=== PATIENT | female | born 1945 | race African-American/Black ===

== ENCOUNTER → 2016-11-22 | Outpatient (CLI) | payer OTHER ==
[2016-06-09 11:18] VITALS: BP 160/85
== END | disposition home or self-care (01) | DRG 884 ==
LOC: RT 13:42
PROVIDERS: ATTEND Psychiatry & Neurology Neurology
DX: R41.89 Other symptoms and signs involving cognitive functions and awareness (principal); R41.82 Altered mental status, unspecified
CPT/HCPCS: 95819

== ENCOUNTER → 2016-12-07 | Outpatient (CLI) | payer OTHER ==
[2016-06-09 11:18] VITALS: BP 160/85
[2016-12-07 16:27] LABS: BASOPHILS # (AUTO) 0.1 X10^3/uL (0.0-0.1); BASOPHILS % (AUTO) 0.7 % (0.2-1.0); EOSINOPHILS # (AUTO) 0.3 x10^3/uL (0.0-0.2); EOSINOPHILS % (AUTO) 4.4 % (0.9-2.9); HEMATOCRIT 35.3 % (36.0-47.0); HEMOGLOBIN 11.1 g/dL (12.0-16.0); LYMPHOCYTES # (AUTO) 1.3 X10^3/uL (1.3-2.9); LYMPHOCYTES % (AUTO) 16.9 % (21.0-51.0); MEAN CORPUSCULAR HEMOGLOBIN 24.2 pg (27.0-34.0); MEAN CORPUSCULAR HGB CONC 31.3 g/dL (33.0-35.0); MEAN CORPUSCULAR VOLUME 77.2 fL (80.0-100.0); MEAN PLATELET VOLUME 9.2 fL (7.4-11.0); MONOCYTES # (AUTO) 0.9 x10^3/uL (0.3-0.8); NEUTROPHILS # (AUTO) 5.1 x10^3/uL (2.2-4.8); PLATELET COUNT 313 X10^3/uL (150.0-450.0); RED BLOOD COUNT 4.58 X10^6/uL (3.5-5.4); RED CELL DISTRIBUTION WIDTH 19.6 % (11.6-16.5); RETICULOCYTE % 1.46 % (0.8-2.2); WHITE BLOOD COUNT 7.7 X10^3/uL (3.6-10.0)
[2016-12-07 16:44] LABS: FREE T4 (FREE THYROXINE) 0.84 ng/dL (0.76-1.46); PLATELET MORPHOLOGY COMMENT NORMAL (NORMAL); T4 (THYROXINE) 9.1 ug/dL (4.7-13.3); TSH (3RD GENERATION) 1.707 uIU/mL (0.358-3.74)
[2016-12-12 06:53] LABS: METHYLMALONIC ACID 0.26 umol/L (0.00-0.40)
== END ==
LOC: LAB 15:40
PROVIDERS: ATTEND Psychiatry & Neurology Neurology
DX: R41.89 Other symptoms and signs involving cognitive functions and awareness (principal); R41.82 Altered mental status, unspecified; Z86.2 Personal history of diseases of the blood and blood-forming organs and certain disorders involving the immune mechanism
CPT/HCPCS: 36415; 82607; 82615; 82746; 83918; 84436; 84439; 84443; 85025; 85045; 86256; 86340

== ENCOUNTER → 2017-01-22 | Outpatient (CLI) | payer OTHER ==
[2016-06-09 11:18] VITALS: BP 160/85
--- NOTE | 2017-01-22 18:55 | MRI ---
STUDY: MRI OF THE BRAIN WITHOUT GADOLINIUM HISTORY: Cognitive decline. Headaches, dizziness, blurred vision and altered mental status. Technique: Multiplanar multi-sequence MRI of the brain was obtained utilizing standard departmental protocol. Sagittal and axial T1, axial T2, FLAIR, diffusion (DWI/ADC) images through the brain were performed. Comparison: Head CT from September 15, 2014. Findings: The sulci, cisterns and ventricles are prominent consistent with diffuse volume loss. There are conf luent and scattered foci of T2 prolongation in the periventricular and subcortical white matter of b oth hemispheres. This is a nonspecific finding which likely represents microangiopathic change in a patient of this age. There is no evidence of acute territorial infarction, hemorrhage, mass, mass effect, or midline shif t. There are no abnormal intra-axial or extra-axial fluid collections. The major intracranial vascu lar flow voids appear intact. The left vertebral artery appears dominant. Note is made of retention cysts in the right maxillary sinus. IMPRESSION: 1. No evidence of acute intracranial abnormality. 2. Nonspecific white matter change and volume loss. Reported By:
== END ==
LOC: RAD 14:44
PROVIDERS: ATTEND Psychiatry & Neurology Neurology
DX: R41.89 Other symptoms and signs involving cognitive functions and awareness (principal)
CPT/HCPCS: 70551

== ENCOUNTER 2017-02-09 19:12 | Emergency (ER) | payer OTHER ==
[2017-02-09 19:17] VITALS: BMI 19.6
[2017-02-09] MEDS ORDERED: NS 1000 ML 1,000 ML IV ONE (19:25)
[2017-02-09] MEDS ORDERED: NS 1000 ML 1,000 ML ONE (19:28)
--- NOTE | 2017-02-09 20:31 | DR.GENAD ---
HPI - PCP Primary Care Physician: MIKO - Complaint/Symptoms Chief Complaint:: NECK PAIN FOR COUPLE WEEKS AND DIZZY, BLOOD PRESSURE 80/50S AT HOME. FAMILY STATES SHE HAS BEEN INCOHERENT. - Source History Provided: Patient, Family Member - Mode of Arrival Mode of Arrival: Wheelchair - Timing Onset of Chief Complaint: 02/09/17 PMH - PMH Past Medical History: Yes Past Medical History: Anemia, Anxiety, Arthritis, Dyslipidemia, Migraines, GERD , Hypertension Past Surgical History: Yes Surgical History: Appendectomy, Cholecystectomy, Hysterectomy, Ortho Surgery - Family History History of Family Medical Conditions: Yes Family Medical History: AR, Heart Failure, Hypertension - Social History Type of Tobacco Use: Cigarettes Alcohol Use: None Do you use any recreational Drugs:: No Lives With: Family Lives Where: Home - infectious screening Have you traveled outside the country in the last 6 months?: No Isolation: Standard ROS - Review of Systems Eyes: No Symptoms Reported ENTM: No Symptoms Reported Respiratoy: No Symptoms Reported Cardiovascular: No Symptoms Reported Gastrointestinal/Abdominal: No Symptoms Reported Genitourinary: No Symptoms Reported Neurological: No Symptoms Reported Musculoskeletal: No Symptoms Reported Integumentary: No Symptoms Reported Hematologic/Lymphatic: No Symptoms Reported Endocrine: No Symptoms Reported Psychiatric: No Symptoms Reported All Other Systems: Reviewed and Negative PE - Vital Signs Vitals: Temperature 97.5 F Pulse Rate [Apical] 61 Pulse Rate 57 Respiratory Rate 16 Blood Pressure [Right Arm] 161/90 Blood Pressure [Right Arm] 144/90 Blood Pressure [Left Arm] 112/55 Blood Pressure 76/43 O2 Sat by Pulse Oximetry 98 - General Limitations: No Limitations General Appearance: Alert, In No Apparent Distress - Head Head Exam: Normal Inspection, Atraumatic - Eyes Eye exam: Normal Appearance, PERRL, EOMI - ENT ENT Exam: Normal Exam External Ear Exam: Normal External Inspection TM/Canal Exam: Bilateral Normal Nose Exam: Normal Nose Exam, Sinus Tenderness Mouth Exam: Normal Inspection Throat Exam: Normal Inspection - Neck Neck Exam: Normal Inspection, Full ROM - Chest Chest Inspection: Normal Inspection - Respiratory Respiratory Exam: Normal Lung Sounds Bilat Respiratory Exam: Bilateral Clear to Auscultation - Cardiovascular Cardiovascular Exam: Regular Rate, Normal Rhythm - Abdominal Exam Abdominal Exam: Normal Inspection, Normal Bowel Sounds Abdominal Tenderness: negative: RUQ, RLQ, LUQ, LLQ, Epigastrium, Suprapubic, Diffuse, Mild, Moderate, Severe, Other - Extremities Extremities Exam: Normal Inspection, Full ROM - Back Back Exam: Normal Inspection, Full ROM - Psychiatric Psychiatric Exam: Normal Affect, Normal Mood - Skin Skin Exam: Warm, Dry, Intact ROR - Labs Reviewed Result Diagrams: 02/09/17 20:12 02/09/17 20:12 Laboratory: WBC 10.1 X10^3/uL (3.6-10.0) H 02/09/17 20:12 RBC 3.96 X10^6/uL (3.5-5.4) 02/09/17 20:12 Hgb 10.2 g/dL (12.0-16.0) L 02/09/17 20:12 Hct 31.7 % (36.0-47.0) L 02/09/17 20:12 MCV 79.9 fL (80.0-100.0) L 02/09/17 20:12 MCH 25.8 pg (27.0-34.0) L 02/09/17 20:12 MCHC 32.2 g/dL (33.0-35.0) L 02/09/17 20:12 RDW 18.8 % (11.6-16.5) H 02/09/17 20:12 Plt Count 362 X10^3/uL (150.0-450.0) 02/09/17 20:12 Plt Count Comment Adequate (ADEQUATE) 02/09/17 20:12 MPV 8.8 fL (7.4-11.0) 02/09/17 20:12 Neut % 72.6 % (42.0-75.0) 02/09/17 20:12 Lymph % 14.0 % (21.0-51.0) L 02/09/17 20:12 [place] % 9.9 % (0.0-13.0) 02/09/17 20:12 Eos % 2.9 % (0.9-2.9) 02/09/17 20:12 Baso % 0.6 % (0.2-1.0) 02/09/17 20:12 Neut # 7.3 x10^3/uL (2.2-4.8) H 02/09/17 20:12 Lymph # 1.4 X10^3/uL (1.3-2.9) 02/09/17 20:12 [place] # 1.0 x10^3/uL (0.3-0.8) H 02/09/17 20:12 Eos # 0.3 x10^3/uL (0.0-0.2) H 02/09/17 20:12 Baso # 0.1 X10^3/uL (0.0-0.1) 02/09/17 20:12 Absolute Nucleated RBC 0.0 /100WBC 02/09/17 20:12 Plt Morphology Comment Normal (NORMAL) 02/09/17 20:12 RBC Morphology Abnormal (NORMAL) A 02/09/17 20:12 Hypochromasia Slight A 02/09/17 20:12 Anisocytosis Slight A 02/09/17 20:12 INR Target Range - 02/09/17 20:12 INR 0.97 (0.8-1.3) 02/09/17 20:12 PTT 30.9 SECONDS (22.9-36.5) 02/09/17 20:12 PTT Comment - 02/09/17 20:12 Sodium 139 mmol/L (136-145) 02/09/17 20:12 Corrected Sodium TNP 02/09/17 20:12 Potassium 3.8 mmol/L (3.5-5.1) 02/09/17 20:12 Chloride 105 mmol/L (98-107) 02/09/17 20:12 Carbon Dioxide 21.4 mmol/L (21-32) 02/09/17 20:12 BUN 27 mg/dL (7-18) H 02/09/17 20:12 Creatinine 1.51 mg/dL (0.55-1.02) H 02/09/17 20:12 Est GFR (MDRD) Af Amer 44 (>60) L 02/09/17 20:12 Est GFR (MDRD) Non-Af 36 (>60) L 02/09/17 20:12 Glucose 87 mg/dL (65-99) 02/09/17 20:12 Calcium 7.5 mg/dL (8.5-10.1) L 02/09/17 20:12 Corrected Calcium 8.1 mg/dL (8.5-10.1) L 02/09/17 20:12 Phosphorus 6.5 mg/dL (2.6-4.7) H 02/09/17 20:12 Magnesium 2.2 mg/dL (1.7-2.9) 02/09/17 20:12 Total Bilirubin 0.20 mg/dL (0.2-1.0) 02/09/17 20:12 AST 15 Units/L (15-37) 02/09/17 20:12 ALT 27 Units/L (12-78) 02/09/17 20:12 Alkaline Phosphatase 150 Units/L (46-116) H 02/09/17 20:12 Creatine Kinase 143 Units/L (26-192) 02/09/17 20:12 CK-MB (CK-2) 2.9 ng/mL (0-4.0) 02/09/17 20:12 CK/CKMB % Calc 2.0 % (<4) 02/09/17 20:12 Troponin I 0.04 ng/mL (0-1.5) 02/09/17 20:12 Total Protein 6.1 g/dL (6.4-8.2) L 02/09/17 20:12 Albumin 3.2 g/dL (3.4-5.0) L 02/09/17 20:12 Globulin 2.9 g/dL (2.5-4.5) 02/09/17 20:12 Albumin/Globulin Ratio 1.1 Ratio (1.1-2.1) 02/09/17 20:12 - XRAY XRAY Interpreted by: Radiologist (C Spine: Mild degererative disc changes noted throughout the cervical spine. 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
--- NOTE | 2017-02-09 20:31 | RAD ---
EXAM: Chest X-ray INDICATION: Bradycardia COMPARISION: Prior exam from April 12, 2016 TECHNIQUE: Single view FINDINGS: The lungs are clear and the lung volumes are within normal limits. No pleural effusion or pneumothor ax. The cardiac silhouette and mediastinum are normal. The regional skeleton is intact. IMPRESSION: No acute abnormality identified Reported By:
[2017-02-09 20:45] LABS: EOSINOPHILS # (AUTO) 0.3 x10^3/uL (0.0-0.2); RED CELL DISTRIBUTION WIDTH 18.8 % (11.6-16.5)
[2017-02-09 20:54] LABS: BASOPHILS # (AUTO) 0.1 X10^3/uL (0.0-0.1); BASOPHILS % (AUTO) 0.6 % (0.2-1.0); EOSINOPHILS % (AUTO) 2.9 % (0.9-2.9); HEMATOCRIT 31.7 % (36.0-47.0); HEMOGLOBIN 10.2 g/dL (12.0-16.0); LYMPHOCYTES # (AUTO) 1.4 X10^3/uL (1.3-2.9); MEAN CORPUSCULAR HEMOGLOBIN 25.8 pg (27.0-34.0); MEAN CORPUSCULAR HGB CONC 32.2 g/dL (33.0-35.0); MEAN CORPUSCULAR VOLUME 79.9 fL (80.0-100.0); MEAN PLATELET VOLUME 8.8 fL (7.4-11.0); MONOCYTES % (AUTO) 9.9 % (0.0-13.0); NEUTROPHILS # (AUTO) 7.3 x10^3/uL (2.2-4.8); NEUTROPHILS % (AUTO) 72.6 % (42.0-75.0); PLATELET COUNT 362 X10^3/uL (150.0-450.0); RED BLOOD COUNT 3.96 X10^6/uL (3.5-5.4); WHITE BLOOD COUNT 10.1 X10^3/uL (3.6-10.0)
[2017-02-09 21:11] LABS: ANISOCYTOSIS SLIGHT; HYPOCHROMASIA SLIGHT; PLATELET MORPHOLOGY COMMENT NORMAL (NORMAL)
[2017-02-09 21:24] LABS: ALANINE AMINOTRANSFERASE 27 Units/L (12-78); ALBUMIN 3.2 g/dL (3.4-5.0); ALKALINE PHOSPHATASE 150 Units/L (46-116); ASPARTATE AMINO TRANSFERASE 15 Units/L (15-37); BLOOD UREA NITROGEN 27 mg/dL (7-18); CALCIUM 7.5 mg/dL (8.5-10.1); CARBON DIOXIDE 21.4 mmol/L (21-32); CHLORIDE 105 mmol/L (98-107); COR CA(FOR HYPOALB) 8.1 mg/dL (8.5-10.1); CREATININE 1.51 mg/dL (0.55-1.02); GLUCOSE 87 mg/dL (65-99); MAGNESIUM 2.2 mg/dL (1.7-2.9); SODIUM 139 mmol/L (136-145); TOTAL PROTEIN 6.1 g/dL (6.4-8.2); eGFR BLACK RACES 44 (>60); eGFR NON BLACK RACES 36 (>60)
[2017-02-09 21:32] LABS: CREATINE KINASE MB 2.9 ng/mL (0-4.0); TROPONIN I 0.04 ng/mL (0-1.5)
[2017-02-09 22:03] VITALS: BP 112/55
--- NOTE | 2017-02-09 22:17 | RAD ---
EXAM: Cervical spine x-ray INDICATION: Neck pain COMPARISION: No priors available for comparison TECHNIQUE: AP, lateral, and odontoid, three views FINDINGS: Mild degenerative disc changes are seen throughout cervical spine. There is normal alignment of the cervical vertebral bodies. The facets are intact. The soft tissues are normal. No acute fracture or subluxation identified. IMPRESSION: Mild degenerative disc changes noted throughout the cervical spine. No acute abnormality identified. Reported By:
== END 2017-02-09 23:23 | disposition home or self-care (01) ==
LOC: ER 19:23
DX: M47.812 Spondylosis without myelopathy or radiculopathy, cervical region (principal); R42 Dizziness and giddiness; R41.82 Altered mental status, unspecified; R94.31 Abnormal electrocardiogram [ECG] [EKG]
CPT/HCPCS: 36415; 71010; 72040; 80053; 82550; 82553; 83735; 84100; 84484; 85025; 85610; 85730; 93005; 93010; 96365; 96367; 99283; A4222

== ENCOUNTER 2017-03-27 09:49 | Observation (INO) | payer OTHER ==
[2017-03-27] MEDS ORDERED: OXYCODONE HCL PO PRN (14:23)
[2017-03-27] MEDS ORDERED: ACETAMINOPHEN PO PRN (14:23)
[2017-03-27] MEDS ORDERED: [UNRECOGNIZED DRUG - OTHER] PO PRN (14:23)
[2017-03-27] MEDS ORDERED: FIORICET #3 W/CODEINE CAP PO PRN (14:30)
[2017-03-27] MEDS ORDERED: PERCOCET TAB 5/325 MG PO PRN (14:30)
--- NOTE | 2017-03-27 14:32 | DR.UPDATE ---
H&P Update History and Physical Update: WAS SEEN IN OUR OFFICE FOR A FOLLOW UP VISIT FOR LEFT ARM PAIN. SHE PRESENTED TODAY WITH CONFUSION. FAMILY REPORTED THAT PATIENT HAD BEEN COMBATIVE WITH THEM FOR THE PAST TWO DAYS. THEY REPORTED THAT THEY ARE UNABLE TO TAKE CARE OF HER AT HOME ANYMORE. THEY WISH FOR PATIENT TO BE PLACED IN A PRISON CARE FACILITY. WE ARE IN AGREEMENT WITH WISHES. WE ADMITTED PATIENT FOR FURTHER TREATMENT AND EVALUATION. WE PLANNED TO CHECK LABS ON ADMISSION. WE PLAN TO ARRANGE FOR PLACEMENT AT A BEHAVIORAL HEALTH UNIT. A H&P WAS COMPLETED ON . PATIENT HAS BEEN SEEN AND EXAMINED WITH NO CHANGES NOTED. Changes noted: NO Yes with the following:
[2017-03-27 14:46] LABS: BASOPHILS % (AUTO) 0.4 % (0.2-1.0); EOSINOPHILS # (AUTO) 0.1 x10^3/uL (0.0-0.2); EOSINOPHILS % (AUTO) 0.9 % (0.9-2.9); HEMATOCRIT 33.1 % (36.0-47.0); HEMOGLOBIN 10.6 g/dL (12.0-16.0); LYMPHOCYTES # (AUTO) 1.1 X10^3/uL (1.3-2.9); LYMPHOCYTES % (AUTO) 14.4 % (21.0-51.0); MEAN CORPUSCULAR HEMOGLOBIN 25.9 pg (27.0-34.0); MEAN CORPUSCULAR HGB CONC 31.9 g/dL (33.0-35.0); MEAN CORPUSCULAR VOLUME 81.4 fL (80.0-100.0); MEAN PLATELET VOLUME 8.7 fL (7.4-11.0); MONOCYTES # (AUTO) 0.7 x10^3/uL (0.3-0.8); MONOCYTES % (AUTO) 8.7 % (0.0-13.0); NEUTROPHILS # (AUTO) 5.8 x10^3/uL (2.2-4.8); NEUTROPHILS % (AUTO) 75.6 % (42.0-75.0); PLATELET COUNT 389 X10^3/uL (150.0-450.0); RED BLOOD COUNT 4.07 X10^6/uL (3.5-5.4); RED CELL DISTRIBUTION WIDTH 17.1 % (11.6-16.5); WHITE BLOOD COUNT 7.7 X10^3/uL (3.6-10.0)
[2017-03-27 15:06] LABS: ALANINE AMINOTRANSFERASE 45 Units/L (12-78); ALBUMIN 3.3 g/dL (3.4-5.0); ALKALINE PHOSPHATASE 133 Units/L (46-116); ASPARTATE AMINO TRANSFERASE 26 Units/L (15-37); BLOOD UREA NITROGEN 51 mg/dL (7-18); CALCIUM 8.7 mg/dL (8.5-10.1); CARBON DIOXIDE 23.2 mmol/L (21-32); CHLORIDE 104 mmol/L (98-107); COR CA(FOR HYPOALB) 9.3 mg/dL (8.5-10.1); CREATININE 1.93 mg/dL (0.55-1.02); GLUCOSE 81 mg/dL (65-99); SODIUM 137 mmol/L (136-145); TOTAL PROTEIN 7.3 g/dL (6.4-8.2); eGFR BLACK RACES 33 (>60); eGFR NON BLACK RACES 27 (>60)
--- NOTE | 2017-03-27 15:16 | CT ---
CT HEAD WITHOUT CONTRAST CLINICAL HISTORY: 71-year-old female with acute confusion. COMPARISON: CT head September 15, 2014, MR brain January 22, 2017. TECHNIQUE: Multiple, non-contrasted axial CT images were obtained from the skull base to the crania l vertex. Coronal and sagittal reformats were performed. FINDINGS: There are no abnormal intra- or extra-axial fluid collections, midline shift, or mass effe ct. [place]-white differentiation is normal. Subtle heterogenous density of a mildly prominent appearing tony that appears chronic. Global cortical involutional changes are present that are within normal limits for the patient's sta morgan age. The ventricular system is mildly enlarged but commensurate with the degree of sulcal promin ence. Periventricular and supraventricular white matter hypodensity is present that is nonspecific i n appearance, but most likely to represent microvascular ischemic changes. Atherosclerotic vascular calcification is present within the carotid siphons and distal vertebral arteries. Mucosal thickening of the right maxillary sinus. The remaining imaged paranasal sinuses, mastoid air cells, and tympanic spaces are clear. Bilateral lens implants. IMPRESSION: 1. No definite evidence of an acute intracranial process. 2. Heterogenous density within a mildly prominent appearing tony, recommend MR brain with and withou t contrast for complete evaluation. 3. Moderate microvascular white matter ischemic changes, with associated volume loss. 4. Mucosal thickening of the right maxillary sinus, correlate for sinusitis. Reported By:
[2017-03-27 15:19] LABS: PLATELET MORPHOLOGY COMMENT NORMAL (NORMAL)
[2017-03-27 15:20] LABS: ANISOCYTOSIS SLIGHT; HYPOCHROMASIA 1+
[2017-03-27] MEDS ORDERED: PATIENT'S HOME MEDICATION (Dicyclomine Hcl [Dicyclomine Hcl] 1 TAB) PO SCH (17:00)
[2017-03-27] MEDS ORDERED: HALDOL INJ IM PRN (18:43)
[2017-03-27] MEDS: BENTYL CAP 10 MG PO SCH (18:48)
[2017-03-27] MEDS ORDERED: XANAX ONE (19:58)
[2017-03-27] MEDS: XANAX PO SCH (20:04)
[2017-03-27] MEDS ORDERED: LABETALOL HCL PO SCH (21:00)
[2017-03-28] MEDS: BENTYL CAP 10 MG PO SCH ×3 (02:08→15:10)
[2017-03-28] MEDS: FLONASE NASAL SPRAY ENOSTRIL SCH ×2 (02:10→09:32)
[2017-03-28] MEDS: LASIX PO SCH ×2 (02:11→09:31)
[2017-03-28] MEDS: NORMODYNE TAB 100 MG PO SCH ×2 (02:12→09:32)
[2017-03-28] MEDS: MEGACE PO SCH ×2 (02:12→09:31)
[2017-03-28] MEDS: PROTONIX TAB 40 MG PO SCH ×2 (02:13→09:31)
[2017-03-28] MEDS: XANAX PO SCH ×2 (02:20→05:18)
[2017-03-28 05:12] LABS: ALANINE AMINOTRANSFERASE 43 Units/L (12-78); ALBUMIN 3.4 g/dL (3.4-5.0); ALKALINE PHOSPHATASE 135 Units/L (46-116); ASPARTATE AMINO TRANSFERASE 29 Units/L (15-37); BLOOD UREA NITROGEN 43 mg/dL (7-18); CALCIUM 8.6 mg/dL (8.5-10.1); CARBON DIOXIDE 24.2 mmol/L (21-32); CHLORIDE 104 mmol/L (98-107); CREATININE 1.33 mg/dL (0.55-1.02); GLUCOSE 106 mg/dL (65-99); SODIUM 139 mmol/L (136-145); TOTAL PROTEIN 7.3 g/dL (6.4-8.2); eGFR BLACK RACES 51 (>60); eGFR NON BLACK RACES 42 (>60)
[2017-03-28 05:16] LABS: BASOPHILS % (AUTO) 0.4 % (0.2-1.0); EOSINOPHILS # (AUTO) 0.1 x10^3/uL (0.0-0.2); EOSINOPHILS % (AUTO) 1.3 % (0.9-2.9); HEMATOCRIT 34.1 % (36.0-47.0); HEMOGLOBIN 10.9 g/dL (12.0-16.0); LYMPHOCYTES # (AUTO) 1.4 X10^3/uL (1.3-2.9); LYMPHOCYTES % (AUTO) 21.7 % (21.0-51.0); MEAN CORPUSCULAR HEMOGLOBIN 26.1 pg (27.0-34.0); MEAN CORPUSCULAR HGB CONC 31.9 g/dL (33.0-35.0); MEAN CORPUSCULAR VOLUME 81.6 fL (80.0-100.0); MEAN PLATELET VOLUME 9.8 fL (7.4-11.0); MONOCYTES # (AUTO) 0.9 x10^3/uL (0.3-0.8); NEUTROPHILS # (AUTO) 4.2 x10^3/uL (2.2-4.8); NEUTROPHILS % (AUTO) 63.6 % (42.0-75.0); PLATELET COUNT 361 X10^3/uL (150.0-450.0); RED BLOOD COUNT 4.17 X10^6/uL (3.5-5.4); RED CELL DISTRIBUTION WIDTH 17.6 % (11.6-16.5); WHITE BLOOD COUNT 6.6 X10^3/uL (3.6-10.0)
[2017-03-28] MEDS ORDERED: ZESTRIL TAB 40 MG PO SCH (09:00)
[2017-03-28] MEDS ORDERED: TOPAMAX PO SCH (09:00)
[2017-03-28] MEDS ORDERED: ASPIRIN EC 81 MG PO SCH (09:00)
[2017-03-28 09:48] VITALS: BMI 19.1
[2017-03-28] MEDS ORDERED: ATIVAN TAB 1 MG PO SCH (10:00)
--- NOTE | 2017-03-28 12:52 | PCM.PROG ---
Progress Note - Progress Note for Day of Date: 03/28/17 - Subjective Subjective: WAS ADMITTED FROM OUR OFFICE WITH ACUTE CONFUSION. SHE HAS A HISTORY OF VASCULAR DEMENTIA. SHE IS AWAKE, WALKING AROUND THE ROOM ON MORNING ROUNDS. PATIENT IS MAKING THE BED UP AND PUTTING BLANKETS ON THE COUCH. SHE SAYS THAT SHE IS PREPARING HER ROOM FOR WHOMEVER MAY STAY WITH HER TONIGHT. STAFF REPORTS THAT PATIENT HAS BEEN COMBATIVE WITH THEM THROUGHOUT THE NIGHT. WE ORDERED HALDOL 1MG IM Q8H, BUT NO IMPROVEMENT IN AGITATION WAS NOTICED. VITALS THIS AM ARE 97.5-88-20-100%-90/59. CBC WNL EXCEPT HGB 10.9, HCT 34.1. CMP WNL EXCEPT BUN 43, CREATININE 1.33, GFR 42, GLUCOSE 106, TOTAL BILIRUBIN 0.10, ALKALINE PHOSPHATASE 135. BRAIN CT REPORTS NO EVIDENCE OF AN ACUTE INTRACRANIAL PROCESS, MODERATE MICROVASCULAR WHITE MATTER ISCHEMIC CHANGES, WITH ASSOCIATED VOLUME LOSS. MUCOSAL THICKENING OF THE RIGHT MAXILLARY SINUS, AND HETEROGENOUS DENSITY WITHIN A MILDLY PROMINENT APPEARING ORTEGA. WE PLAN TO ARRANGE FOR PLACEMENT IN A BEHAVIORAL HEALTH UNIT PER FAMILY'S REQUEST. WE WILL START ATIVAN 1MG PO TID, RECHECK LABS, AND FOLLOW UP WITH PATIENT IN AM. - Past Medical Family Social History Past Med/Fam/Surg Hx: No changes since H&P Allergies: Allergies No Known Drug Allergies Allergy (Verified 03/27/17 14:03) - Review of Systems ROS: No change since H&P - Vital Signs and I&O's Vital Signs: Temperature 96.8 F Pulse Rate [Right Brachial] 72 Respiratory Rate 18 Blood Pressure [Right Arm] 98/58 Blood Pressure [Right Arm] 144/90 Blood Pressure [Left Arm] 102/55 Blood Pressure 112/55 O2 Sat by Pulse Oximetry 100 Intake and Output: Intake & Output 03/26/17 03/27/17 03/28/17 03/29/17 11:59 11:59 11:59 11:59 Intake Total 555 Balance 555 - Physical Exam Oriented: Not Oriented Eyes: Normal. negative: Blurred Vision, Diplopia, Discharge, Pain, Redness, Photophobia, Other Ear: Normal. negative: Right, Left, Swelling, Ecchymosis, Hemotypanum, Abrasion , Laceration Nose: Normal. negative: Injected, Discharge, Blood, Other Throat: Normal. negative: Tonsillar Hypertrophy, Red, Exudate, Dry, Other Respiratory: Normal. negative: Right, Left, Generalized, Superior, Inferior, Diminished, Wheezes, Rales, Rhonchi, OTHER Cardiovascular: Normal. negative: Tachycardia, Bradycardia, Irregular, S3, S4, Systolic, Diastolic, Murmur, Edema, Other : Normal. negative: Dysuria, Hematuria, Frequency, Discharge, Testicular Pain , Bleeding, , Other Auscultation: Bowel Sounds: Normal. negative: Bruit, Absent, Increased, Decreased, High Pitched, Other Palpation: Normal. negative: Spleen Enlarged, Liver Enlarged, Mass Pulsatile, Other Tenderness: Normal. negative: Diffuse, RUQ, RLQ, LUQ, LLQ, Epigastric, Periumbilical, Suprapubic, Mild, Moderate, Severe, Rebound, Guarding, Rigidity, Other Skin: Normal. negative: Decreased Turg[place], Rash, Papular, Macular, Maculopapular , Vesicular, Pustular, Petechial, Red, Tender, Hot, Diaphoresis, Wound, Bruising , Ecchymosis, Other Musculoskeletal: Normal. negative: Right, Left, Shoulder, Clavicle, Arm, Elbow , Forearm, Wrist, Hand, Hip, Thigh, Knee, Leg, Ankle, Foot, Back:Thoracic, Back: Lumbar, Back:Midline, Back:Paraspinous, Pelvis, Swelling, Tender, Deformity, Pulse Deficit, Motor Deficit, Sensory Deficit, Instability, Crepitance Psychiatric: Agitation. negative: Normal, Anxiety, Depression, Other Affect: Violent. negative: Angry, Anxious, Depressed, Flat, Hysterical, Quiet, Normal Speech Pattern: Clear - Laboratory and Diagnostics Result Diagrams: 03/28/17 03:10 03/28/17 03:10 Labs: Laboratory WBC 6.6 X10^3/uL (3.6-10.0) 03/28/17 03:10 RBC 4.17 X10^6/uL (3.5-5.4) 03/28/17 03:10 Hgb 10.9 g/dL (12.0-16.0) L 03/28/17 03:10 Hct 34.1 % (36.0-47.0) L 03/28/17 03:10 MCV 81.6 fL (80.0-100.0) 03/28/17 03:10 MCH 26.1 pg (27.0-34.0) L 03/28/17 03:10 MCHC 31.9 g/dL (33.0-35.0) L 03/28/17 03:10 RDW 17.6 % (11.6-16.5) H 03/28/17 03:10 Plt Count 361 X10^3/uL (150.0-450.0) 03/28/17 03:10 Plt Count Comment Adequate (ADEQUATE) 03/27/17 14:28 MPV 9.8 fL (7.4-11.0) 03/28/17 03:10 Neut % 63.6 % (42.0-75.0) 03/28/17 03:10 Lymph % 21.7 % (21.0-51.0) 03/28/17 03:10 [place] % 13.0 % (0.0-13.0) 03/28/17 03:10 Eos % 1.3 % (0.9-2.9) 03/28/17 03:10 Baso % 0.4 % (0.2-1.0) 03/28/17 03:10 Neut # 4.2 x10^3/uL (2.2-4.8) 03/28/17 03:10 Lymph # 1.4 X10^3/uL (1.3-2.9) 03/28/17 03:10 [place] # 0.9 x10^3/uL (0.3-0.8) H 03/28/17 03:10 Eos # 0.1 x10^3/uL (0.0-0.2) 03/28/17 03:10 Baso # 0.0 X10^3/uL (0.0-0.1) 03/28/17 03:10 Absolute Nucleated RBC 0.0 /100WBC 03/28/17 03:10 Plt Morphology Comment Normal (NORMAL) 03/27/17 14:28 RBC Morphology Abnormal (NORMAL) A 03/27/17 14:28 Hypochromasia 1+ A 03/27/17 14:28 Anisocytosis Slight A 03/27/17 14:28 Sodium 139 mmol/L (136-145) 03/28/17 03:10 Corrected Sodium TNP 03/28/17 03:10 Potassium 4.7 mmol/L (3.5-5.1) 03/28/17 03:10 Chloride 104 mmol/L (98-107) 03/28/17 03:10 Carbon Dioxide 24.2 mmol/L (21-32) 03/28/17 03:10 BUN 43 mg/dL (7-18) H 03/28/17 03:10 Creatinine 1.33 mg/dL (0.55-1.02) H 03/28/17 03:10 Est GFR (MDRD) Af Amer 51 (>60) L 03/28/17 03:10 Est GFR (MDRD) Non-Af 42 (>60) L 03/28/17 03:10 Glucose 106 mg/dL (65-99) H 03/28/17 03:10 Calcium 8.6 mg/dL (8.5-10.1) 03/28/17 03:10 Corrected Calcium TNP 03/28/17 03:10 Total Bilirubin 0.10 mg/dL (0.2-1.0) L 03/28/17 03:10 AST 29 Units/L (15-37) 03/28/17 03:10 ALT 43 Units/L (12-78) 03/28/17 03:10 Alkaline Phosphatase 135 Units/L (46-116) H 03/28/17 03:10 Total Protein 7.3 g/dL (6.4-8.2) 03/28/17 03:10 Albumin 3.4 g/dL (3.4-5.0) 03/28/17 03:10 Globulin 3.9 g/dL (2.5-4.5) 03/28/17 03:10 Albumin/Globulin Ratio 0.9 Ratio (1.1-2.1) L 03/28/17 03:10 - Plan (1) Acute confusion Status: Acute Plan: ATIVAN 1MG PO TID, ARRANGE FOR PLACEMENT AT BEHAVIORAL HEALTH UNIT, CONTINUE TO MONITOR (2) Osteoarthritis of left shoulder region Status: Chronic Qualifiers: Osteoarthritis type: primary Qualified Code(s): M19.012 - Primary osteoarthritis, left shoulder Plan: CONTINUE PERCOCET PRN, CONTINUE TO MONITOR (3) Generalized anxiety disorder Status: Chronic Plan: CONTINUE XANAX TID, CONTINUE TO MONITOR (4) Hypertension Status: Chronic Qualifiers: Hypertension type: essential hypertension Qualified Code(s): I10 - Essential (primary) hypertension Plan: CONTINUE NORMODYNE, CONTINUE ZESTRIL, CONTINUE TO MONITOR (5) Vascular dementia Status: Chronic Qualifiers: Dementia behavioral disturbance: with behavioral disturbance Qualified Code (s): F01.51 - Vascular dementia with behavioral disturbance Plan: CONTINUE ZYPREXA 2.5MG HS, CONTINUE TO MONITOR (6) Migraines Status: Chronic Qualifiers: Migraine type: unspecified Status migrainosus presence: without status migrainosus Intractability: not intractable Qualified Code(s): G43.909 - Migraine, unspecified, not intractable, without status migrainosus Plan: CONTINUE FIORICET, CONTINUE TOPAMAX, CONTINUE TO MONITOR
[2017-03-28] MEDS ORDERED: XANAX PO SCH (14:00)
[2017-03-28 17:08] VITALS: BP 108/64
--- NOTE | 2017-03-29 00:10 | DR.CARTERD ---
- Discharge Summary for: Discharge Summary for Date of:: 03/28/17 - Admission Date Date of Admission: 03/27/17 - Admission Diagnoses Admission Diagnosis: (1) Acute confusion (2) Osteoarthritis of left shoulder region (3) Generalized anxiety disorder (4) Hypertension (5) Vascular dementia (6) Migraines - Discharge Date Discharge Date: 03/28/17 - Discharge Diagnoses Discharge Diagnosis: (1) Behavioral disturbances (2) Vascular Dementia (3) Osteoarthritis of left shoulder region (4) Generalized anxiety disorder (5) Hypertension (6) Migraines - Hospital Course Hospital Course: WAS ADMITTED FROM OUR OFFICE WITH ACUTE CONFUSION. SHE HAS A HISTORY OF VASCULAR DEMENTIA. PATIENT IS NOTED WITH DISORIENTATION, SUSPICIOUS BEHAVIOR, COMBATIVE, BELLIGERENT, DIFFICULTY UNDERSTANDING WITH REASONING AND JUDGMENT. ON DAY TWO OF HOSPITAL STAY, PATIENT WAS MAKING THE BED UP AND PUTTING BLANKETS ON THE COUCH. SHE STATED THAT SHE WAS PREPARING HER ROOM FOR WHOMEVER MAY STAY WITH HER TONIGHT. STAFF REPORTED THAT PATIENT HAD BEEN COMBATIVE WITH THEM THROUGHOUT THE NIGHT. WE ORDERED HALDOL 1MG IM Q8H, BUT NO IMPROVEMENT IN AGITATION WAS NOTICED. VITALS WERE 97.5-88-20-100%-90/59. CBC WNL EXCEPT HGB 10.9, HCT 34.1. CMP WNL EXCEPT BUN 43, CREATININE 1.33, GFR 42, GLUCOSE 106, TOTAL BILIRUBIN 0.10, ALKALINE PHOSPHATASE 135. BRAIN CT REPORTED NO EVIDENCE OF AN ACUTE INTRACRANIAL PROCESS, MODERATE MICROVASCULAR WHITE MATTER ISCHEMIC CHANGES, WITH ASSOCIATED VOLUME LOSS. MUCOSAL THICKENING OF THE RIGHT MAXILLARY SINUS, AND HETEROGENOUS DENSITY WITHIN A MILDLY PROMINENT APPEARING [place]TEGA. A 1013 WAS SIGNED AND ARRANGEMENTS WERE MADE FOR TRANSFER TO [facility] PER FAMILY'S REQUEST. [facility] ACCEPTED PATIENT AND PATIENT WAS TRANSFERRED VIA EMS IN STABLE CONDITION. - Discharge Medications Discharge Medications: Alprazolam 1 tab PO TID 03/27/17 [History] Aspirin EC [ASPIRIN EC 81 MG *] 1 tab PO DAILY 03/27/17 [History] Codeine/Butalbital/ASA/Caffein [Ascomp with Codeine Capsule] 1 cap PO QID PRN [History] Dicyclomine HCl 1 tab PO QID 03/27/17 [History] Diphenoxylate HCl/Atropine [Lomotil 2.5-0.025 mg Tablet] 1 tab PO QID PRN [History] Fluticasone Nasal [place] [FLONASE NASAL SPRAY *] 2 spray INH BID 03/27/17 [ History] Furosemide 1 tab PO BID 03/27/17 [History] Labetalol HCl [Labetalol HCl] 1 tab PO BID 03/27/17 [History] Lisinopril [Lisinopril] 1 tab PO DAILY 03/27/17 [History] Megestrol Acetate [MEGACE TAB 40 MG *] 1 tab PO BID PRN 03/27/17 [History] Olanzapine [ZYPREXA 2.5 MG *] 1 tab PO HS 03/27/17 [History] Oxycodone HCl/Acetaminophen [Percocet 7.5-325 mg Tablet] 1 tab PO QID PRN [History] Pantoprazole Sodium 40 mg [PROTONIX 40 MG *] 1 tab PO BID 03/27/17 [History] Topiramate [TOPAMAX TAB 25 MG *] 1 tab PO DAILY 03/27/17 [History] - Discharge Disposition Discharge Disposition: PATIENT IS TO FOLLOW UP IN OUR OFFICE UPON DISCHARGE.
== END 2017-03-28 17:25 | DRG 884 ==
LOC: MED/SURG 09:49 → UNDOADMOB 09:49 → MED/SURG 13:20
PROVIDERS: ADMIT Internal Medicine; ATTEND Internal Medicine
DX: R41.89 Other symptoms and signs involving cognitive functions and awareness (principal); F01.51 Vascular dementia, unspecified severity, with behavioral disturbance; M79.602 Pain in left arm; D64.89 Other specified anemias; R94.4 Abnormal results of kidney function studies; S46.112A Strain of muscle, fascia and tendon of long head of biceps, left arm, initial encounter; E03.8 Other specified hypothyroidism; E78.2 Mixed hyperlipidemia; D51.8 Other vitamin B12 deficiency anemias; I10 Essential (primary) hypertension; F41.8 Other specified anxiety disorders; G43.909 Migraine, unspecified, not intractable, without status migrainosus; M19.012 Primary osteoarthritis, left shoulder; F91.8 Other conduct disorders
CPT/HCPCS: 36415; 70450; 80053; 85025; 87040; A4216; A4222; S0179; G0378; J1630